=== PATIENT | female | born 1955 | race Hispanic/Latino ===

== ENCOUNTER 2018-10-09 06:25 | Inpatient (IN) | payer BC, MEDICAID ==
[2018-10-09] MEDS ORDERED: Albuterol 0.083% Inhal Sol (2.5 mg/3 mL) UD INH STA (07:44)
[2018-10-09] MEDS ORDERED: Sodium Chloride 0.9% 1,000 ML IV ONE ×2 (07:44→09:59)
[2018-10-09 08:07] LABS: BASO % 0.2 % (0.0-2.0); EOS # 0.1 K/uL (0.0-0.7); EOS % 0.4 % (0.0-4.0); HEMOGLOBIN 13.7 g/dL (11.0-16.0); LYMPH # 1.3 K/uL (1.0-4.3); LYMPH % 7.7 % (20.0-40.0); MEAN CELL VOLUME 88.4 fL (81.0-99.0); MEAN CORPUSCULAR HEMOGLOBIN 29.8 pg (27.0-31.0); MEAN CORPUSCULAR HGB CONC 33.7 g/dL (33.0-37.0); MEAN PLATELET VOLUME 9.8 fL (7.2-11.7); MONO # 1.2 K/uL (0.0-0.8); MONO % 7.2 % (0.0-10.0); NEUT # 13.7 K/uL (1.8-7.0); NEUT % 84.5 % (50.0-75.0); PLATELET COUNT 175 K/uL (130-400); RBC 4.58 Mil/uL (3.80-5.20); RED CELL DISTRIBUTION WIDTH 14.5 % (11.5-14.5); WHITE BLOOD COUNT 16.2 K/uL (4.8-10.8)
[2018-10-09] MEDS ORDERED: Sodium Chloride 0.9% 1,000 ML ONE ×2 (08:15→09:59)
[2018-10-09] MEDS ORDERED: Albuterol 0.083% Inhal Sol (2.5 mg/3 mL) UD ONE (08:15)
[2018-10-09 08:17] LABS: ALB/GLOB RATIO 1.4 (1.0-2.1); ALBUMIN 4.2 g/dL (3.5-5.0); ALT/SGPT 208 U/L (9-52); AST/SGOT 97 U/L (14-36); BLOOD UREA NITROGEN 12 mg/dL (7-17); CALCIUM 8.6 mg/dl (8.6-10.4); GFR NON-AFRICAN AMERICAN > 60
--- NOTE | 2018-10-09 08:26 | C.PDOC ---
History Of Present Illness 63 y/o female presents to the ER for evaluation of fever and chills which has been present since last night. Family of patient states that she had 102.2 F fever. Patient reports that she feels intermittent dizziness. She also notes that she began having cough upon arrival to ER. Denies recent travel/hospitalizations/antibiotics, syncope, weight loss, CP,SOB, nausea, vomiting, and abdominal pain. Time Seen by Provider: 10/09/18 06:44 Chief Complaint (Nursing): Dizziness/Lightheaded History Per: Patient, Family History/Exam Limitations: no limitations Onset/Duration Of Symptoms: Days Current Symptoms Are (Timing): Still Present Severity: Moderate Past Medical History Reviewed: Historical Data, Nursing Documentation, Vital Signs Vital Signs: Last Vital Signs Temp 98.6 F 10/09/18 06:34 Pulse 102 H 10/09/18 06:34 Resp 20 10/09/18 06:34 BP 112/74 10/09/18 06:34 Pulse Ox 96 10/09/18 06:34 - Medical History PMH: No Chronic Diseases Surgical History: No Surg Hx Family History: States: No Known Family Hx - Social History Hx Alcohol Use: No Hx Substance Use: No Review Of Systems Except As Marked, All Systems Reviewed And Found Negative. Constitutional: Positive for: Fever, Chills Cardiovascular: Negative for: Chest Pain Respiratory: Positive for: Cough. Negative for: Shortness of Breath Gastrointestinal: Negative for: Nausea, Vomiting, Abdominal Pain Physical Exam - Physical Exam Appears: Well, Non-toxic, No Acute Distress, Other (awake, alert, oriented x3, family translating at bedside) Skin: Normal Color, Warm, Dry Head: Atraumatic, Normacephalic Eye(s): bilateral: Normal Inspection, PERRL, EOMI Ear(s): Bilateral: Other (fluid behind ears, no TM erythema) Oral Mucosa: Moist Throat: Normal, No Erythema, No Exudate Neck: Supple Chest: Symmetrical Cardiovascular: Rhythm Irregular (tachycardiac) Respiratory: Decreased Breath Sounds (decreased breath sounds in bases), No Rales, Rhonchi (scattered rhonchi), No Wheezing Gastrointestinal/Abdominal: Normal Exam, Soft, No Tenderness, No Guarding, No Rebound Extremity: Normal ROM, Other (no pitting edema) Neurological/Psych: Oriented x3, Normal Speech ED Course And Treatment - Laboratory Results Result Diagrams: 10/10/18 07:42 10/10/18 07:42 ECG: Interpreted By Me, Viewed By Me ECG Rhythm: Sinus Rhythm Interpretation Of ECG: NSR with normal intervals, normal axises,non specific ST abnormalities, and no ST elevations/ depressions Rate From EC O2 Sat by Pulse Oximetry: 96 (RA) Pulse Ox Interpretation: Normal Medical Decision Making Medical Decision Making: Plan: --Labs --ECG --CXR --UA --IV Fluids --Albuterol 9:45 AM Results and plan discussed with patient and family. Patient will be treated with abx and admitted. Disposition Counseled Patient/Family Regarding: Studies Performed, Diagnosis - Disposition Disposition: HOSPITALIZED Disposition Time: 09:45 Condition: STABLE - Clinical Impression Clinical Impression: Pneumonia - Scribe Statement The provider has reviewed the documentation as recorded by the Aleksandribe Jose Alfredo Belle Provider Attestation: All medical record entries made by the Scribe were at my direction and personally dictated by me. I have reviewed the chart and agree that the record accurately reflects my personal performance of the history, physical exam, medical decision making, and the department course for this patient. I have also personally directed, reviewed, and agree with the discharge instructions and disposition.
[2018-10-09 08:35] LABS: SQUAMOUS EPITHIAL 1 /hpf (0-5); URINE BILIRUBIN NEGATIVE (NEGATIVE); URINE BLOOD 2+ (NEGATIVE); URINE CLARITY Clear (Clear); URINE COLOR Yellow (YELLOW); URINE GLUCOSE (UA) NORMAL (Normal); URINE LEUKOCYTE ESTERASE NEG Leu/uL (Negative); URINE PROTEIN 1+ mg/dL (NEGATIVE); URINE UROBILINOGEN NORMAL mg/dL (0.2-1.0)
[2018-10-09 09:35] LABS: BANDS 2 % (0-2); LYMPHOCYTE 10 % (20-40); MONOCYTE 4 % (0-10); NEUTROPHIL 84 % (50-75); PLATELET ESTIMATE NORMAL (NORMAL); TOTAL CELLS COUNTED 100
[2018-10-09] MEDS ORDERED: Azithromycin 500mg/250ML NS 500 MG/250 ML BAG IV STA (10:06)
[2018-10-09] MEDS ORDERED: cefTRIAXone IV 1 gm in Dextros 50 ML IV STA (10:06)
[2018-10-09] MEDS ORDERED: Azithromycin 500mg/250ML NS 500 MG/250 ML BAG IVPB ONE (10:28)
[2018-10-09 10:29] LABS: VENOUS BLOOD GAS BASE EXCESS -4.4 mmol/L (0.0-2.0); VENOUS BLOOD GAS PCO2 39 mmHg (40-60); VENOUS BLOOD GAS PO2 37 mm/Hg (30-55); VENOUS BLOOD PH 7.34 (7.32-7.43)
--- NOTE | 2018-10-09 11:36 | RAD ---
Date of service: 10/09/2018 HISTORY: Pneumonia COMPARISON: No prior. TECHNIQUE: Chest PA and lateral FINDINGS: LUNGS: Retrocardiac infiltrate is a possibility, as commented on by pulmonary impression of referring clinician. Nodular appearance linear opacity at the lateral left base is also seen and may be related but follow-up radiography is recommended following therapy. PLEURA: No significant pleural effusion identified. No pneumothorax apparent. CARDIOVASCULAR: No aortic atherosclerotic calcification present. Normal cardiac size. No pulmonary vascular congestion. OSSEOUS STRUCTURES: No significant abnormalities. VISUALIZED UPPER ABDOMEN: Normal. OTHER FINDINGS: None. IMPRESSION: Potential retrocardiac airspace disease with somewhat nodular component laterally. Follow-up radiography is recommended following therapy to demonstrate resolution. Otherwise, chest CT is recommended.
--- NOTE | 2018-10-09 13:46 | CP.PCM.HP ---
History of Present Illness - History of Present Illness History of Present Illness: COMPREHENSIVE CONSULT HPI 63 years old woman presented to [facility] emergency room complaining of sudden onset of chills cough and some atypical chest pain. Chest x-ray showed questionable retrocardiac density. Patient has no previous history of any medical illness. As per the family patient had 102F temperature prior to arrival PAST HIST. PERSONAL HIST: Smoking. N Alcohol. N Allergy N Travel_- . FAMILY HIST : ROS : Constitutional: Negative for weight change, Eyes: Negative for redness, swelling, itching, discharge, vision changes, blurry vision, double vision, glaucoma, cataracts, Ears: Negative for hearing loss, ringing, , tinnitus, vertigo Nose: Negative for rhinorrhea, stuffiness, sniffing, itching, postnasal drip, discoloration, nasal congestion and epistaxis. Throat: Negative for throat clearing, sore throat, hoarseness, difficulty swallowing and difficulty speaking. Respiratory: Negative for, hemoptysis, snoring at night, Cardiovascular: Negative for chest pain, palpitations, orthopnea, PND, Edema of legs, leg cramps, angina, claudication, , irregular heartbeat, Neurology: Negative for irritability, muscle weakness, numbness and tingling, seizures, tremors, migraines, slurred speech, syncope, memory loss, mood changes, recurrent headaches Gastrointestinal: Negative for difficulty swallowing, diarrhea, constipation, black stools, rectal bleeding, nausea, flatulence, reflux, poor appetite, change s in bowel habits, abdominal pain Genitourinary: Negative for frequent urination, hematuria, discharge, incontinence, urinary retention, frequent UTI, Psychiatric: Negative for depression, anxiety/panic, suicidal tendencies, Musculoskeletal: Negative for swollen joints, back pain, , neck pain, morning stiffness of joints, . Skin: Negative for rash, ulcers, itching, dry skin and pigmented lesions. P/E: Constitutional: Appears stated age and in no apparent distress. Head: Normocephalic. Ears: External ear canals patent without inflammation. Tympanic membranes intact with normal light reflex and landmark. Eyes: Pupils are central, bilaterally equal, symmetrical and reacts to light with normal movements and no icterus or pallor. Nose: External nares are patent. Mucosa is pink Mouth-Throat: Good general appearance and condition. No post-pharyngeal/oropharyngeal erythema and tonsillar hypertrophy. Good dental hygiene. Neck-Lymphatic: Neck is supple with normal ROM, no thyromegaly, lymph nodes or masses. JVD is normal with no carotid bruit. Lungs: Clear to percussion and auscultation with bilateral normal air entry. Cardiovascular: S1 and S2 are normal with no murmurs, gallops and rub. GI Exam: No hepatomegaly. Abdomen is soft and non-tender. No Organomegaly , masses or hernias are evident and bowel sounds are normal and active. Neurology: Higher function and all cranial nerves intact, with no gross motor or sensory deficit. Superficial and deep reflexes are normal with downwards planters. No cerebellar deficit with normal gait. Musculoskeletal: No tender spots with normal curvature of the spine with no swelling or restricted ROM of the small and large joints. Extremities: Homans sign absent. Intact pulses with no pitting edema, calf te nderness or skin color changes. Skin: No rash, eruptions or abnormal skin pigmentation LAB/RADIOLOGY: ASSESMENT : Sudden onset of respiratory symptoms with fever suggests influenza with possible influenza pneumonia PLAN: ID evaluation isolation by mouth Tamiflu and IV antibiotics Present on Admission - Present on Admission Any Indicators Present on Admission: No Past Patient History - Past Social History Smoking Status: Never Smoked - CARDIAC Other/Comment: "heart problem" possible arrythmia from childhood. patient unaware of exact problem. - PSYCHIATRIC Hx Substance Use: No Meds Allergies/Adverse Reactions: Allergies Allergy/AdvReac Type Severity Reaction Status Date / Time nuts Allergy Uncoded 10/09/18 06:34 shellfish Allergy Uncoded 10/09/18 06:34 Results - Vital Signs Recent Vital Signs: Last Vital Signs Temp 99.6 F 10/09/18 12:59 Pulse 91 H 10/09/18 12:59 Resp 17 10/09/18 12:59 BP 115/68 10/09/18 12:59 Pulse Ox 95 10/09/18 12:59 - Labs Result Diagrams: 10/12/18 08:57 10/12/18 08:57 Labs: Laboratory Results - last 24 hr 10/09/18 10/09/18 10/09/18 07:43 08:03 08:03 WBC 16.2 H RBC 4.58 Hgb 13.7 Hct 40.5 MCV 88.4 MCH 29.8 MCHC 33.7 RDW 14.5 Plt Count 175 MPV 9.8 Neut % (Auto) 84.5 H Lymph % (Auto) 7.7 L Kimball % (Auto) 7.2 Eos % (Auto) 0.4 Baso % (Auto) 0.2 Neut # (Auto) 13.7 H Lymph # (Auto) 1.3 Kimball # (Auto) 1.2 H Eos # (Auto) 0.1 Baso # (Auto) 0.0 Neutrophils % (Manual) 84 H Band Neutrophils % 2 Lymphocytes % (Manual) 10 L Monocytes % (Manual) 4 Platelet Estimate Normal pO2 VBG pH VBG pCO2 VBG HCO3 VBG Total CO2 VBG O2 Sat (Calc) VBG Base Excess VBG Potassium Glucose Lactate Sodium 137 Potassium 3.6 Chloride 104 Carbon Dioxide 24 Anion Gap 13 BUN 12 Creatinine 0.9 Est GFR ( Amer) > 60 Est GFR (Non-Af Amer) > 60 POC Glucose (mg/dL) 116 H Random Glucose 123 H Calcium 8.6 Total Bilirubin 0.7 AST 97 H ALT 208 H Alkaline Phosphatase 145 H Troponin I < 0.0120 Total Protein 7.1 Albumin 4.2 Globulin 2.9 Albumin/Globulin Ratio 1.4 Venous Blood Potassium Urine Color Urine Clarity Urine pH Ur Specific [place] Urine Protein Urine Glucose (UA) Urine Ketones Urine Blood Urine Nitrate Urine Bilirubin Urine Urobilinogen Ur Leukocyte Esterase Urine WBC (Auto) Urine RBC (Auto) Ur Squamous Epith Cells Influenza Typ A,B (EIA) 10/09/18 10/09/18 10/09/18 08:19 10:24 12:43 WBC RBC Hgb Hct MCV MCH MCHC RDW Plt Count MPV Neut % (Auto) Lymph % (Auto) [place] % (Auto) Eos % (Auto) Baso % (Auto) Neut # (Auto) Lymph # (Auto) Kim[place] # (Auto) Eos # (Auto) Baso # (Auto) Neutrophils % (Manual) Band Neutrophils % Lymphocytes % (Manual) Monocytes % (Manual) Platelet Estimate pO2 37 VBG pH 7.34 VBG pCO2 39 L VBG HCO3 20.7 VBG Total CO2 22.2 VBG O2 Sat (Calc) 72.8 H VBG Base Excess -4.4 L VBG Potassium 2.7 L Glucose 122 H Lactate 1.7 Sodium 141.0 Potassium Chloride 110.0 H Carbon Dioxide Anion Gap BUN Creatinine Est GFR ( Amer) Est GFR (Non-Af Amer) POC Glucose (mg/dL) Random Glucose Calcium Total Bilirubin AST ALT Alkaline Phosphatase Troponin I Total Protein Albumin Globulin Albumin/Globulin Ratio Venous Blood Potassium 2.7 L Urine Color Yellow Urine Clarity Clear Urine pH 6.0 Ur Specific [place] 1.013 Urine Protein 1+ H Urine Glucose (UA) Normal Urine Ketones Negative Urine Blood 2+ H Urine Nitrate Negative Urine Bilirubin Negative Urine Urobilinogen Normal Ur Leukocyte Esterase Neg Urine WBC (Auto) 7 H Urine RBC (Auto) 16 H Ur Squamous Epith Cells 1 Influenza Typ A,B (EIA) Pos for influenza a H
[2018-10-09 18:40] VITALS: RESP 20
--- NOTE | 2018-10-09 22:40 | CP.PCM.CON ---
History of Present Illness - History of Present Illness History of Present Illness: HPI: 63 y/o female presents to the ER for evaluation of fever and chills which has been present since last night. Family of patient states that she had 102.2 F fever. Patient reports that she feels intermittent dizziness. She also notes that she began having cough upon arrival to ER. Denies having CP,SOB, nausea, vomiting, and abdominal pain. 63-year-old Mong[place]ian female who presents to the ER for evaluation off sudden onset of fever and chills and feeling dizziness with inability to stand. Patient states she has been not feeling well for the past 2 days but on the day of admission she felt extremely weak and dizzy. She also noted that she had a fever of 102.2 at home when they called the ambulance. Patient also complains of a dry cough which she states she has been a having intermittently for the past 2 months but got worse yesterday. Patient also reports that she felt a lump / SWELLING ? LN ON THE RIGHT SIDE OF HER NECK. CHEST X-RAY ON ADMISSION SHOWED A RETROCARDIAC INFILTRATE WITH SOME NODULAR COMPONENT LEFT LATERAL BASE. A RAPID INFLUENZA EIA REPORTED POSITIVE FOR INFLUENZA A. PATIENT DENIES ANY LOSS OF WEIGHT, LOSS OF APPETITE OR NIGHT SWEATS. PATIENT DENIES ANY RECENT TRAVEL OR ANY SICK CONTACTS. PATIENT DENIES ANY PREVIOUS HISTORY OF TB/OR EXPOSURE RECENT OR PAST. PT IN [place] X LAST 13 YEARS. PMH: No Chronic Diseases / FATTY LIVER Surgical History: No Surg Hx Family History: States: No Known Family Hx - Social History Hx Alcohol Use: No Hx Substance Use: No ALLERGY: NUTS. SHELLFISH. Review of Systems - Constitutional Constitutional: Chills, Fever, Malaise - EENT Eyes: absent: Blurred Vision, Change in Vision Ears: Dizziness. absent: Ear Discharge, Ear Pain Nose/Mouth/Throat: absent: Mouth Lesions, Sore Throat - Cardiovascular Cardiovascular: absent: Chest Pain, Leg Edema, Palpitations, Pedal Edema - Respiratory Respiratory: Cough (DRY COUGH). absent: Hemoptysis, Change in Mucous Color, Pain with Coughing - Gastrointestinal Gastrointestinal: absent: Abdominal Pain, Diarrhea, Nausea, Vomiting - Musculoskeletal Musculoskeletal: Neck Pain. absent: Myalgias - Integumentary Integumentary: absent: Rash - Hematologic/Lymphatic Hematologic: As Per HPI, Lymphadenopathy (RIGHT SIDE OF THE NECK). absent: Easy Bruising Past Patient History - Past Medical History & Family History Past Medical History?: Yes - Past Social History Smoking Status: Never Smoked - CARDIAC Hx Cardiac Disorders: Yes Hx Cardia Arrhythmia: Yes (childhood) Other/Comment: "heart problem" possible arrythmia from childhood. patient unaware of exact problem. - PULMONARY Hx Respiratory Disorders: No - NEUROLOGICAL Hx Neurological Disorder: Yes Hx Vertigo: Yes (ear pain for past 3 weeks causing vertigo) - HEENT Hx HEENT Problems: Yes Other/Comment: ear pain for past 3 weeks causing vertigo - RENAL Hx Chronic Kidney Disease: No - ENDOCRINE/METABOLIC Hx Endocrine Disorders: No - HEMATOLOGICAL/ONCOLOGICAL Hx Blood Disorders: No - INTEGUMENTARY Hx Dermatological Problems: No - MUSCULOSKELETAL/RHEUMATOLOGICAL Hx Musculoskeletal Disorders: No Hx Falls: No - GASTROINTESTINAL Hx Gastrointestinal Disorders: No - GENITOURINARY/GYNECOLOGICAL Hx Genitourinary Disorders: No - PSYCHIATRIC Hx Psychophysiologic Disorder: No Hx Substance Use: No - SURGICAL HISTORY Hx Surgeries: Yes Hx Appendectomy: Yes - ANESTHESIA Hx Anesthesia: Yes Hx Anesthesia Reactions: No Hx Malignant Hyperthermia: No Has any member of the family had a problem w/ anesthesia?: No Meds Allergies/Adverse Reactions: Allergies Allergy/AdvReac Type Severity Reaction Status Date / Time nuts Allergy Uncoded 10/09/18 06:34 shellfish Allergy Uncoded 10/09/18 06:34 - Medications Medications: Current Medications Acetaminophen (Tylenol 325mg Tab) 650 mg PO Q4 PRN PRN Reason: Temperature Last Admin: 10/09/18 19:01 Dose: 650 mg Azithromycin (Zithromax 500mg In Ns Addvantage) 500 mg in 250 mls @ 167 mls/hr IVPB DAILY IRISH; Protocol Cefepime HCl (Maxipime Iv 1 Gm Premix) 1 gm in 50 mls @ 100 mls/hr IVPB Q24H IRISH; Protocol Oseltamivir Phosphate (Tamiflu Cap) 75 mg PO BID IRISH; Protocol Stop: 10/14/18 18:01 Last Admin: 10/09/18 17:19 Dose: 75 mg Zolpidem Tartrate (Ambien) 5 mg PO HS PRN PRN Reason: Insomnia Physical Exam - Constitutional Appears: No Acute Distress - Head Exam Head Exam: NORMAL INSPECTION - Eye Exam Eye Exam: EOMI, PERRL - ENT Exam ENT Exam: Normal Oropharynx - Neck Exam Neck exam: Positive for: Full Rom, Lymphadenopathy (LEFT ANTERIOR TRIANGLE.), Normal Inspection. Negative for: Meningismus, Tenderness, Thyromegaly - Respiratory Exam Respiratory Exam: Rhonchi (LESS BASE.) - Cardiovascular Exam Cardiovascular Exam: REGULAR RHYTHM, +S1, +S2. absent: Systolic Murmur - GI/Abdominal Exam GI & Abdominal Exam: Normal Bowel Sounds, Soft. absent: Organomegaly, Tenderness - Extremities Exam Extremities exam: Positive for: normal capillary refill, pedal edema (1+ EDEMA), pedal pulses present. Negative for: calf tenderness - Neurological Exam Neurological exam: Alert, CN II-XII Intact, Oriented x3, Reflexes Normal - Psychiatric Exam Psychiatric exam: Normal Mood - Skin Skin Exam: Normal Color, Warm Results - Vital Signs Recent Vital Signs: Last Vital Signs Temp 99.5 F 10/09/18 20:01 Pulse 72 10/09/18 18:38 Resp 20 10/09/18 18:38 BP 123/72 10/09/18 18:38 Pulse Ox 95 10/09/18 18:38 - Labs Result Diagrams: 10/09/18 08:03 10/09/18 08:03 Labs: Laboratory Results - last 24 hr 10/09/18 10/09/18 10/09/18 07:43 08:03 08:03 WBC 16.2 H RBC 4.58 Hgb 13.7 Hct 40.5 MCV 88.4 MCH 29.8 MCHC 33.7 RDW 14.5 Plt Count 175 MPV 9.8 Neut % (Auto) 84.5 H Lymph % (Auto) 7.7 L [place] % (Auto) 7.2 Eos % (Auto) 0.4 Baso % (Auto) 0.2 Neut # (Auto) 13.7 H Lymph # (Auto) 1.3 Vance # (Auto) 1.2 H Eos # (Auto) 0.1 Baso # (Auto) 0.0 Neutrophils % (Manual) 84 H Band Neutrophils % 2 Lymphocytes % (Manual) 10 L Monocytes % (Manual) 4 Platelet Estimate Normal pO2 VBG pH VBG pCO2 VBG HCO3 VBG Total CO2 VBG O2 Sat (Calc) VBG Base Excess VBG Potassium Glucose Lactate Sodium 137 Potassium 3.6 Chloride 104 Carbon Dioxide 24 Anion Gap 13 BUN 12 Creatinine 0.9 Est GFR ( Amer) > 60 Est GFR (Non-Af Amer) > 60 POC Glucose (mg/dL) 116 H Random Glucose 123 H Calcium 8.6 Total Bilirubin 0.7 AST 97 H ALT 208 H Alkaline Phosphatase 145 H Troponin I < 0.0120 Total Protein 7.1 Albumin 4.2 Globulin 2.9 Albumin/Globulin Ratio 1.4 Venous Blood Potassium Urine Color Urine Clarity Urine pH Ur Specific [place] Urine Protein Urine Glucose (UA) Urine Ketones Urine Blood Urine Nitrate Urine Bilirubin Urine Urobilinogen Ur Leukocyte Esterase Urine WBC (Auto) Urine RBC (Auto) Ur Squamous Epith Cells Influenza Typ A,B (EIA) 10/09/18 10/09/18 10/09/18 08:19 10:24 12:43 WBC RBC Hgb Hct MCV MCH MCHC RDW Plt Count MPV Neut % (Auto) Lymph % (Auto) Vance % (Auto) Eos % (Auto) Baso % (Auto) Neut # (Auto) Lymph # (Auto) Vance # (Auto) Eos # (Auto) Baso # (Auto) Neutrophils % (Manual) Band Neutrophils % Lymphocytes % (Manual) Monocytes % (Manual) Platelet Estimate pO2 37 VBG pH 7.34 VBG pCO2 39 L VBG HCO3 20.7 VBG Total CO2 22.2 VBG O2 Sat (Calc) 72.8 H VBG Base Excess -4.4 L VBG Potassium 2.7 L Glucose 122 H Lactate 1.7 Sodium 141.0 Potassium Chloride 110.0 H Carbon Dioxide Anion Gap BUN Creatinine Est GFR ( Amer) Est GFR (Non-Af Amer) POC Glucose (mg/dL) Random Glucose Calcium Total Bilirubin AST ALT Alkaline Phosphatase Troponin I Total Protein Albumin Globulin Albumin/Globulin Ratio Venous Blood Potassium 2.7 L Urine Color Yellow Urine Clarity Clear Urine pH 6.0 Ur Specific [place] 1.013 Urine Protein 1+ H Urine Glucose (UA) Normal Urine Ketones Negative Urine Blood 2+ H Urine Nitrate Negative Urine Bilirubin Negative Urine Urobilinogen Normal Ur Leukocyte Esterase Neg Urine WBC (Auto) 7 H Urine RBC (Auto) 16 H Ur Squamous Epith Cells 1 Influenza Typ A,B (EIA) Pos for influenza a H - Imaging and Cardiology Chest x-ray Status: Report reviewed by me (RETROCARDIAC INFILTRATE WITH SOMEWHAT NODULAR LINEAR OPACITY AT THE LEFT LATERAL BASE.) Assessment & Plan (1) Pneumonia and influenza Status: Acute (2) Fatty liver disease, nonalcoholic Status: Acute - Assessment and Plan (Free Text) Plan: PANCULTURES. ESR CRP mrsa SCREEN ATYPICAL TITERS. INFLUENZA a AND b ANTIBODY HEPATITIS SCREEN. DC IV CEFTRIAXONE. CONTINUE TAMIFLU 75 MG BY MOUTH TWICE A DAY X5 DAYS.10/09/18 START iv CEFEPIME 1 G EVERY 12 HOURLY 10/09/18. cONTINUE zITHROMAX 500 MG IVPB q 24 HOURLY 10/09/18. DROPLET PRECAUTIONS FOR INFLUENZA. PULMONARY TOILET. CASE DISCUSSED WITH THE FAMILY MEMBERS AT THE BEDSIDE AND STAFF.
[2018-10-10] MEDS: Cefepime IV 1 gm in Dextrose 1 GM/50 ML BAG IVPB SCH ×3 (00:45→23:57)
[2018-10-10 07:58] LABS: BASO % 0.3 % (0.0-2.0); EOS # 0.3 K/uL (0.0-0.7); EOS % 2.3 % (0.0-4.0); HEMOGLOBIN 12.3 g/dL (11.0-16.0); LYMPH # 2.3 K/uL (1.0-4.3); LYMPH % 19.7 % (20.0-40.0); MEAN CELL VOLUME 88.6 fL (81.0-99.0); MEAN CORPUSCULAR HEMOGLOBIN 29.1 pg (27.0-31.0); MEAN CORPUSCULAR HGB CONC 32.8 g/dL (33.0-37.0); MEAN PLATELET VOLUME 10.4 fL (7.2-11.7); MONO # 1.1 K/uL (0.0-0.8); MONO % 9.2 % (0.0-10.0); NEUT # 8.1 K/uL (1.8-7.0); NEUT % 68.5 % (50.0-75.0); RBC 4.21 Mil/uL (3.80-5.20); RED CELL DISTRIBUTION WIDTH 14.3 % (11.5-14.5); WHITE BLOOD COUNT 11.9 K/uL (4.8-10.8)
[2018-10-10 08:15] LABS: ALB/GLOB RATIO 1.2 (1.0-2.1); ALBUMIN 3.4 g/dL (3.5-5.0); ALT/SGPT 155 U/L (9-52); AST/SGOT 72 U/L (14-36); BILIRUBIN,DIRECT 0.3 mg/dL (0.0-0.4); BLOOD UREA NITROGEN 7 mg/dL (7-17); GFR NON-AFRICAN AMERICAN > 60
[2018-10-10] MEDS ORDERED: Cefepime IV 1 gm in Dextrose 1 GM/50 ML BAG IVPB SCH (10:00)
[2018-10-10] MEDS ORDERED: Potassium Chloride 20 mEq ER Tab PO ONE ×2 (10:00→17:00)
[2018-10-10] MEDS: Azithromycin 500mg/250ML NS 500 MG/250 ML BAG IVPB SCH (10:17)
[2018-10-10] MEDS ORDERED: Iodixanol 320 mg/ml 150 ml Bottle IV ONE (12:14)
--- NOTE | 2018-10-10 14:03 | CT ---
Date of service: 10/10/2018 PROCEDURE: CT Chest with contrast HISTORY: Rule out cancer COMPARISON: None available. TECHNIQUE: Contiguous axial images were obtained through the chest with intravenous contrast enhancement. Sagittal and coronal reconstructions were performed. IV contrast: 100 cc Visipaque 320 contrast material. Radiation dose: Total exam DLP = 795.17 mGy-cm. This CT exam was performed using one or more of the following dose reduction techniques: Automated exposure control, adjustment of the mA and/or kV according to patient size, and/or use of iterative reconstruction technique. FINDINGS: LUNGS: Minimal bibasilar atelectasis with what appears represent some linear-curvilinear scarring in the left lung base and lingular region. Mild more discrete elliptical shaped nodular density seen in the left lingular region measuring 16.5 mm x 8 mm with linear area of scarring and/or fibrosis emanating from this focus. This could be postinflammatory possibly representing an area of scarring or atelectasis however, follow-up CT scan in 3 months could be performed to assess stability of this nodular density. MEDIASTINUM: Heart is borderline/mildly enlarged. No significant pericardial effusion. Ascending thoracic aorta measures approximately 3.55 cm and descending thoracic aorta measures approximately 2.2 cm. No significant aortic atherosclerotic calcification or mural plaque present. Few tiny nonspecific mediastinal lymph nodes are present. No significant hilar adenopathy. Trachea is midline and patent with no large central endoluminal lesions. Small hiatal hernia with minimal wall thickening of the distal esophagus likely due to protrusion of gastric mucosa. Esophagitis not excluded. PLEURA: No pleural fluid. No pneumothorax. BONES: No fracture. No destructive lesion. UPPER ABDOMEN: Gallbladder is incompletely distended which may account for slight thick-walled appearance. No evidence of intraluminal gallbladder calculi. There is also mild wall thickening of the stomach which is likely due to incomplete distention as well however possibility of other gastritis or other intrinsic/invasive wall lesion not excluded. OTHER FINDINGS: Mild multilevel degenerative spondylosis of the thoracic spine. IMPRESSION: Minimal bibasilar atelectasis with what appears represent some linear scarring in the left lung base and lingular region. Mild more discrete elliptical shaped nodular density seen in the left lingular region measuring 16.5 mm x 8 mm with linear area of scarring and/or fibrosis emanating from this focus. This could be postinflammatory possibly representing an area of scarring or atelectasis however, follow-up CT scan in 3 months could be performed to assess stability of this nodular density.
--- NOTE | 2018-10-10 14:36 | CP.PCM.PN ---
Subjective - Date & Time of Evaluation Date of Evaluation: 10/10/18 Time of Evaluation: 14:34 - Subjective Subjective: CHIEF COMPLAINTS TODAY : Patient still has mild cough with no expectoration and upper respiratory tract congestion ROS. HEENT : N. Resp : No hemoptysis Cardio : No anginal CP, PND, orthopnea, palpitation GI : No abd.pain, n/v ,diarrhea or GI bleeding . AGER OPERATOR : No headache, vertigo, focal deficit. Musculoskel : No joint swelling , Derm : No rash Psych : Normal affect. Ext : No swelling ,calf pain PE. Pt. is alert awake in no distress. V.S As noted in the chart Head ,ear nose,throat and eyes : Normal. Neck : Supple with normal carotids. Lungs: Clear air entry. Heart : S1 & S2 normal with S4. No murmur. Abd : Soft non tender with normal bowel sounds. Neuro : Moves all ext. with no localized deficit. Ext : No edema with intact pulses.Non tender calves Derm : No rashes or decubitus ulcer. LABS/RADIOLOGY: CT scan of the chest shows some nodular lesion in the left lingula lobe could be secondary to post inflammatory or fibrosis recommend CAT scan in 3 months ASSESSMENT/PLAN : Continue present medications and discussed with the family. Objective - Vital Signs/Intake and Output Vital Signs (last 24 hours): Temp Pulse Resp BP Pulse Ox 99.1 F 90 20 116/75 95 10/10/18 08:40 10/10/18 08:40 10/10/18 08:40 10/10/18 08:40 10/10/18 08:40 Intake and Output: 10/10/18 10/10/18 11:59 23:59 Intake Total 200 Balance 200 - Medications Medications: Current Medications Acetaminophen (Tylenol 325mg Tab) 650 mg PO Q4 PRN PRN Reason: Temperature Last Admin: 10/09/18 19:01 Dose: 650 mg Heparin Sodium (Porcine) (Heparin) 5,000 units SC Q12 [facility] Last Admin: 10/10/18 10:18 Dose: 5,000 units Azithromycin (Zithromax 500mg In Ns Addvantage) 500 mg in 250 mls @ 167 mls/hr IVPB DAILY [facility]; Protocol Last Admin: 10/10/18 10:17 Dose: 167 mls/hr Cefepime HCl (Maxipime Iv 1 Gm Premix) 1 gm in 50 mls @ 100 mls/hr IVPB Q12H [facility]; Protocol Last Admin: 10/10/18 13:10 Dose: 100 mls/hr Potassium Chloride (Potassium Chloride 20 Meq/100 Ml) 20 meq in 100 mls @ 50 mls/hr IVPB ONCE ONE Stop: 10/10/18 17:59 Oseltamivir Phosphate (Tamiflu Cap) 75 mg PO BID [facility]; Protocol Stop: 10/14/18 18:01 Last Admin: 10/10/18 10:17 Dose: 75 mg Zolpidem Tartrate (Ambien) 5 mg PO HS PRN PRN Reason: Insomnia Last Admin: 10/09/18 23:10 Dose: 5 mg - Labs Labs: 10/10/18 07:42 10/10/18 07:42
--- NOTE | 2018-10-10 14:38 | CP.PCM.PN ---
Subjective - Date & Time of Evaluation Date of Evaluation: 10/10/18 Time of Evaluation: 14:38 - Subjective Subjective: CHIEF COMPLAINTS TODAY : AFEBRILE C/O DRY COUGH +VE CONGESTION ROS. HEENT : N. Resp : No hemoptysis +VE COUGH/ Cardio : No anginal CP, PND, orthopnea, palpitation GI : No abd.pain, n/v ,diarrhea or GI bleeding . RELAY ADJUSTER : No headache, vertigo, focal deficit. Musculoskel : No joint swelling , Derm : No rash Psych : Normal affect. Ext : No swelling ,calf pain PE. Pt. is alert awake in no distress. V.S As noted in the chart Head ,ear nose,throat and eyes : Normal. Neck : Supple with normal carotids. Lungs: PROLONGED EXPIRATORY PHASE Heart : S1 & S2 normal with S4. No murmur. Abd : Soft non tender with normal bowel sounds. Neuro : Moves all ext. with no localized deficit. Ext : No edema with intact pulses.Non tender calves Derm : No rashes or decubitus ulcer. LABS/RADIOLOGY: REVIEWED CT scan of the chest shows some nodular lesion in the left lingula lobe could be secondary to post inflammatory or fibrosis recommend CAT scan in 3 months ASSESSMENT INFLUENZA A EXACERBATION OF COPD. CHRONIC FIBROSIS /PLAN : ]BENZONATES 100MG PO TID FOR COUGH PULMONARY CONSULT FOR EXASCERBATION OF COPD /FLUE CONTINUE TAMIFLU 75 MG BY MOUTH TWICE A DAY X5 DAYS.10/09/18 CONTINUE iv CEFEPIME 1 G EVERY 12 HOURLY 10/09/18. cONTINUE zITHROMAX 500 MG IVPB q 24 HOURLY 10/09/18. DROPLET PRECAUTIONS FOR INFLUENZA. PULMONARY TOILET. CASE DISCUSSED WITH THE STAFF Objective - Vital Signs/Intake and Output Vital Signs (last 24 hours): Temp Pulse Resp BP Pulse Ox 99.1 F 90 20 116/75 95 10/10/18 08:40 10/10/18 08:40 10/10/18 08:40 10/10/18 08:40 10/10/18 08:40 Intake and Output: 10/10/18 10/10/18 06:59 18:59 Intake Total 200 Balance 200 - Medications Medications: Current Medications Acetaminophen (Tylenol 325mg Tab) 650 mg PO Q4 PRN PRN Reason: Temperature Last Admin: 10/09/18 19:01 Dose: 650 mg Heparin Sodium (Porcine) (Heparin) 5,000 units SC Q12 [facility] Last Admin: 10/10/18 10:18 Dose: 5,000 units Azithromycin (Zithromax 500mg In Ns Addvantage) 500 mg in 250 mls @ 167 mls/hr IVPB DAILY [facility]; Protocol Last Admin: 10/10/18 10:17 Dose: 167 mls/hr Cefepime HCl (Maxipime Iv 1 Gm Premix) 1 gm in 50 mls @ 100 mls/hr IVPB Q12H [facility]; Protocol Last Admin: 10/10/18 13:10 Dose: 100 mls/hr Potassium Chloride (Potassium Chloride 20 Meq/100 Ml) 20 meq in 100 mls @ 50 mls/hr IVPB ONCE ONE Stop: 10/10/18 17:59 Oseltamivir Phosphate (Tamiflu Cap) 75 mg PO BID [facility]; Protocol Stop: 10/14/18 18:01 Last Admin: 10/10/18 10:17 Dose: 75 mg Zolpidem Tartrate (Ambien) 5 mg PO HS PRN PRN Reason: Insomnia Last Admin: 10/09/18 23:10 Dose: 5 mg - Labs Labs: 10/10/18 07:42 10/10/18 07:42 Assessment and Plan (1) Pneumonia and influenza Status: Acute (2) Fatty liver disease, nonalcoholic Status: Acute
[2018-10-10] MEDS: Albuterol-Ipratrop 3 mg / 0.5 (3 ml) UD INH SCH (19:38)
[2018-10-11] MEDS: Albuterol-Ipratrop 3 mg / 0.5 (3 ml) UD INH SCH ×4 (01:07→19:43)
[2018-10-11 07:58] LABS: BASO # 0.1 K/uL (0.0-0.2); BASO % 0.9 % (0.0-2.0); EOS # 0.3 K/uL (0.0-0.7); EOS % 3.7 % (0.0-4.0); HEMOGLOBIN 12.2 g/dL (11.0-16.0); LYMPH # 2.7 K/uL (1.0-4.3); LYMPH % 33.5 % (20.0-40.0); MEAN CELL VOLUME 88.2 fL (81.0-99.0); MEAN CORPUSCULAR HEMOGLOBIN 29.9 pg (27.0-31.0); MEAN CORPUSCULAR HGB CONC 33.9 g/dL (33.0-37.0); MEAN PLATELET VOLUME 10.5 fL (7.2-11.7); MONO # 0.8 K/uL (0.0-0.8); MONO % 9.6 % (0.0-10.0); NEUT # 4.2 K/uL (1.8-7.0); NEUT % 52.3 % (50.0-75.0); RBC 4.07 Mil/uL (3.80-5.20); RED CELL DISTRIBUTION WIDTH 14.6 % (11.5-14.5); WHITE BLOOD COUNT 8.1 K/uL (4.8-10.8)
[2018-10-11 08:12] LABS: ALB/GLOB RATIO 1.2 (1.0-2.1); ALBUMIN 3.4 g/dL (3.5-5.0); ALT/SGPT 213 U/L (9-52); AST/SGOT 128 U/L (14-36); BLOOD UREA NITROGEN 8 mg/dL (7-17); CALCIUM 8.4 mg/dl (8.6-10.4); GFR NON-AFRICAN AMERICAN > 60
[2018-10-11 08:44] LABS: HEPATITIS B SURFACE AG Negative (NEGATIVE)
[2018-10-11 08:50] LABS: HEPATITIS A IGM NEGATIVE (NEGATIVE); HEPATITIS B CORE AB NEGATIVE (NEGATIVE)
[2018-10-11 09:01] LABS: HEPATITIS C ANTIBODY NEGATIVE (NEGATIVE)
[2018-10-11] MEDS: Azithromycin 500mg/250ML NS 500 MG/250 ML BAG IVPB SCH (10:25)
[2018-10-11] MEDS: Cefepime IV 1 gm in Dextrose 1 GM/50 ML BAG IVPB SCH ×2 (13:10→23:35)
--- NOTE | 2018-10-11 14:21 | CP.PCM.PN ---
Subjective - Date & Time of Evaluation Date of Evaluation: 10/11/18 Time of Evaluation: 14:21 - Subjective Subjective: CHIEF COMPLAINTS TODAY : AFEBRILE STILL WITH DRY COUGH +VE CONGESTED CANNOT COMPLETE A FULL SENTANCE-START COUGHING. C/O WATERY GREEN DIARRHOEA X 4 SINCE AM ROS. HEENT : N. Resp : No hemoptysis +VE COUGH/ Cardio : No anginal CP, PND, orthopnea, palpitation GI : No abd.pain, n/v ,diarrhea or GI bleeding . 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 Musculoskel : No joint swelling , Derm : No rash Psych : Normal affect. Ext : No swelling ,calf pain PE. Pt. is alert awake in no distress. V.S As noted in the chart Head ,ear nose,throat and eyes : Normal. Neck : Supple with normal carotids. Lungs: PROLONGED EXPIRATORY PHASE Heart : S1 & S2 normal with S4. No murmur. Abd : Soft non tender with normal bowel sounds. Neuro : Moves all ext. with no localized deficit. Ext : No edema with intact pulses.Non tender calves Derm : No rashes or decubitus ulcer. LABS/RADIOLOGY: REVIEWED STOOL C. DEFFICILE X -VE CT scan of the chest shows some nodular lesion in the left lingula lobe could be secondary to post inflammatory or fibrosis recommend CAT scan in 3 months ASSESSMENT INFLUENZA A EXACERBATION OF COPD. CHRONIC FIBROSIS DIARRHOEA R/O INFECTIOUS DIARRHOEA /PLAN : STOOLS FOR CULTURE/LEUKOCYTES ]BENZONATES 100MG PO TID FOR COUGH PULMONARY CONSULT FOR EXASCERBATION OF COPD /FLUE CONTINUE TAMIFLU 75 MG BY MOUTH TWICE A DAY X5 DAYS.10/09/18 CONTINUE iv CEFEPIME 1 G EVERY 12 HOURLY 10/09/18. DC zITHROMAX 500 MG IVPB q 24 HOURLY 10/09/18. DROPLET PRECAUTIONS FOR INFLUENZA. PULMONARY TOILET. CASE DISCUSSED WITH THE STAFFAT LENGTH. Objective - Vital Signs/Intake and Output Vital Signs (last 24 hours): Temp Pulse Resp BP Pulse Ox 98.4 F 75 20 105/61 96 10/11/18 08:00 10/11/18 08:00 10/11/18 08:00 10/11/18 08:00 10/11/18 08:00 Intake and Output: 10/11/18 10/11/18 06:59 18:59 Intake Total 100 Balance 100 - Medications Medications: Current Medications Acetaminophen (Tylenol 325mg Tab) 650 mg PO Q4 PRN PRN Reason: Temperature Last Admin: 10/09/18 19:01 Dose: 650 mg Albuterol/Ipratropium (Duoneb 3 Mg/0.5 Mg (3 Ml) Ud) 3 ml INH RQ6 [facility] Last Admin: 10/11/18 09:36 Dose: 3 ml Benzonatate (Tessalon Perles) 200 mg PO TID [facility] Last Admin: 10/11/18 13:40 Dose: 200 mg Heparin Sodium (Porcine) (Heparin) 5,000 units SC Q12 [facility] Last Admin: 10/11/18 10:24 Dose: 5,000 units Azithromycin (Zithromax 500mg In Ns Addvantage) 500 mg in 250 mls @ 167 mls/hr IVPB DAILY [facility]; Protocol Last Admin: 10/11/18 10:25 Dose: 167 mls/hr Cefepime HCl (Maxipime Iv 1 Gm Premix) 1 gm in 50 mls @ 100 mls/hr IVPB Q12H [facility]; Protocol Last Admin: 10/11/18 13:10 Dose: 100 mls/hr Oseltamivir Phosphate (Tamiflu Cap) 75 mg PO BID [facility]; Protocol Stop: 10/14/18 18:01 Last Admin: 10/11/18 10:24 Dose: 75 mg Saccharomyces Boulardii (Florastor) 250 mg PO BID [facility] Zolpidem Tartrate (Ambien) 5 mg PO HS PRN PRN Reason: Insomnia Last Admin: 10/10/18 21:20 Dose: 5 mg - Labs Labs: 10/11/18 07:45 10/11/18 07:45 Assessment and Plan (1) Pneumonia and influenza Status: Acute (2) Fatty liver disease, nonalcoholic Status: Acute
--- NOTE | 2018-10-11 14:22 | CP.PCM.PN ---
Subjective - Date & Time of Evaluation Date of Evaluation: 10/11/18 Time of Evaluation: 14:21 - Subjective Subjective: CHIEF COMPLAINTS TODAY : Patient still has mild cough with no expectoration and upper respiratory tract congestion yesterday patient was complaining of watery diarrhea and wheezing ROS. HEENT : N. Resp : No hemoptysis Cardio : No anginal CP, PND, orthopnea, palpitation GI : No abd.pain, n/v ,diarrhea or GI bleeding . 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 Musculoskel : No joint swelling , Derm : No rash Psych : Normal affect. Ext : No swelling ,calf pain PE. Pt. is alert awake in no distress. V.S As noted in the chart Head ,ear nose,throat and eyes : Normal. Neck : Supple with normal carotids. Lungs: Clear air entry. Heart : S1 & S2 normal with S4. No murmur. Abd : Soft non tender with normal bowel sounds. Neuro : Moves all ext. with no localized deficit. Ext : No edema with intact pulses.Non tender calves Derm : No rashes or decubitus ulcer. LABS/RADIOLOGY: CT scan of the chest shows some nodular lesion in the left lingula lobe could be secondary to post inflammatory or fibrosis recommend CAT scan in 3 months ASSESSMENT/PLAN : C. difficile and DuoNeb nebulizer started. Objective - Vital Signs/Intake and Output Vital Signs (last 24 hours): Temp Pulse Resp BP Pulse Ox 98.4 F 75 20 105/61 96 10/11/18 08:00 10/11/18 08:00 10/11/18 08:00 10/11/18 08:00 10/11/18 08:00 Intake and Output: 10/11/18 10/11/18 11:59 23:59 Intake Total 100 Balance 100 - Medications Medications: Current Medications Acetaminophen (Tylenol 325mg Tab) 650 mg PO Q4 PRN PRN Reason: Temperature Last Admin: 10/09/18 19:01 Dose: 650 mg Albuterol/Ipratropium (Duoneb 3 Mg/0.5 Mg (3 Ml) Ud) 3 ml INH RQ6 [facility] Last Admin: 10/11/18 09:36 Dose: 3 ml Benzonatate (Tessalon Perles) 200 mg PO TID [facility] Last Admin: 10/11/18 13:40 Dose: 200 mg Heparin Sodium (Porcine) (Heparin) 5,000 units SC Q12 [facility] Last Admin: 10/11/18 10:24 Dose: 5,000 units Azithromycin (Zithromax 500mg In Ns Addvantage) 500 mg in 250 mls @ 167 mls/hr IVPB DAILY [facility]; Protocol Last Admin: 10/11/18 10:25 Dose: 167 mls/hr Cefepime HCl (Maxipime Iv 1 Gm Premix) 1 gm in 50 mls @ 100 mls/hr IVPB Q12H [facility]; Protocol Last Admin: 10/11/18 13:10 Dose: 100 mls/hr Oseltamivir Phosphate (Tamiflu Cap) 75 mg PO BID [facility]; Protocol Stop: 10/14/18 18:01 Last Admin: 10/11/18 10:24 Dose: 75 mg Saccharomyces Boulardii (Florastor) 250 mg PO BID [facility] Zolpidem Tartrate (Ambien) 5 mg PO HS PRN PRN Reason: Insomnia Last Admin: 10/10/18 21:20 Dose: 5 mg - Labs Labs: 10/11/18 07:45 10/11/18 07:45
[2018-10-11] MEDS ORDERED: Potassium Chloride 20 mEq ER Tab PO ONE (17:00)
--- NOTE | 2018-10-11 17:27 | CARD ---
APPROVED REPORT Date of service: 10/09/2018 EKG Measurement Heart [id number] <Conclusion> Normal sinus rhythm Nonspecific ST abnormality Borderline EKG
[2018-10-11] MEDS: Saccharomyces Boulardi 250 mg Cap PO SCH (18:25)
[2018-10-12] MEDS: Albuterol-Ipratrop 3 mg / 0.5 (3 ml) UD INH SCH ×3 (01:25→13:22)
[2018-10-12 09:08] LABS: BASO % 0.5 % (0.0-2.0); EOS # 0.4 K/uL (0.0-0.7); EOS % 4.8 % (0.0-4.0); HEMOGLOBIN 12.3 g/dL (11.0-16.0); LYMPH # 3.8 K/uL (1.0-4.3); LYMPH % 45.5 % (20.0-40.0); MEAN CELL VOLUME 88.9 fL (81.0-99.0); MEAN CORPUSCULAR HEMOGLOBIN 29.7 pg (27.0-31.0); MEAN CORPUSCULAR HGB CONC 33.4 g/dL (33.0-37.0); MEAN PLATELET VOLUME 9.8 fL (7.2-11.7); MONO # 0.6 K/uL (0.0-0.8); MONO % 7.3 % (0.0-10.0); NEUT # 3.5 K/uL (1.8-7.0); NEUT % 41.9 % (50.0-75.0); NRBC % 0.1 % (0.0-2.0); RBC 4.15 Mil/uL (3.80-5.20); RED CELL DISTRIBUTION WIDTH 14.5 % (11.5-14.5); WHITE BLOOD COUNT 8.3 K/uL (4.8-10.8)
[2018-10-12 09:29] LABS: ALB/GLOB RATIO 1.2 (1.0-2.1); ALBUMIN 3.6 g/dL (3.5-5.0); ALT/SGPT 165 U/L (9-52); AST/SGOT 71 U/L (14-36); BLOOD UREA NITROGEN 11 mg/dL (7-17); CALCIUM 8.6 mg/dl (8.6-10.4); GFR NON-AFRICAN AMERICAN > 60
[2018-10-12] MEDS: Saccharomyces Boulardi 250 mg Cap PO SCH ×2 (09:33→17:01)
[2018-10-12] MEDS: Cefepime IV 1 gm in Dextrose 1 GM/50 ML BAG IVPB SCH (12:22)
--- NOTE | 2018-10-12 14:37 | CP.PCM.PN ---
Subjective - Date & Time of Evaluation Date of Evaluation: 10/12/18 Time of Evaluation: 14:36 - Subjective Subjective: CHIEF COMPLAINTS TODAY : upper respiratory tract congestion less. C. difficile is negative in the stool ROS. HEENT : N. Resp : No hemoptysis Cardio : No anginal CP, PND, orthopnea, palpitation GI : No abd.pain, n/v ,diarrhea or GI bleeding . 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 Musculoskel : No joint swelling , Derm : No rash Psych : Normal affect. Ext : No swelling ,calf pain PE. Pt. is alert awake in no distress. V.S As noted in the chart Head ,ear nose,throat and eyes : Normal. Neck : Supple with normal carotids. Lungs: Clear air entry. Heart : S1 & S2 normal with S4. No murmur. Abd : Soft non tender with normal bowel sounds. Neuro : Moves all ext. with no localized deficit. Ext : No edema with intact pulses.Non tender calves Derm : No rashes or decubitus ulcer. LABS/RADIOLOGY: CT scan of the chest shows some nodular lesion in the left lingula lobe could be secondary to post inflammatory or fibrosis recommend CAT scan in 3 months ASSESSMENT/PLAN : to discuss with ID for further plan Objective - Vital Signs/Intake and Output Vital Signs (last 24 hours): Temp Pulse Resp BP Pulse Ox 98.5 F 86 20 116/76 96 10/12/18 07:58 10/12/18 07:58 10/12/18 07:58 10/12/18 07:58 10/12/18 07:58 Intake and Output: 10/12/18 10/12/18 11:59 23:59 Intake Total 250 530 Balance 250 530 - Medications Medications: Current Medications Acetaminophen (Tylenol 325mg Tab) 650 mg PO Q4 PRN PRN Reason: Temperature Last Admin: 10/09/18 19:01 Dose: 650 mg Albuterol/Ipratropium (Duoneb 3 Mg/0.5 Mg (3 Ml) Ud) 3 ml INH RQ6 [facility] Last Admin: 10/12/18 13:22 Dose: Not Given Benzonatate (Tessalon Perles) 200 mg PO TID [facility] Last Admin: 10/12/18 13:00 Dose: 200 mg Heparin Sodium (Porcine) (Heparin) 5,000 units SC Q12 [facility] Last Admin: 10/12/18 09:33 Dose: 5,000 units Cefepime HCl (Maxipime Iv 1 Gm Premix) 1 gm in 50 mls @ 100 mls/hr IVPB Q12H [facility]; Protocol Last Admin: 10/12/18 12:22 Dose: 100 mls/hr Oseltamivir Phosphate (Tamiflu Cap) 75 mg PO BID [facility]; Protocol Stop: 10/14/18 18:01 Last Admin: 10/12/18 09:33 Dose: 75 mg Saccharomyces Boulardii (Florastor) 250 mg PO BID [facility] Last Admin: 10/12/18 09:33 Dose: 250 mg Zolpidem Tartrate (Ambien) 5 mg PO HS PRN PRN Reason: Insomnia Last Admin: 10/11/18 22:51 Dose: 5 mg - Labs Labs: 10/12/18 08:57 10/12/18 08:57
--- NOTE | 2018-10-12 14:43 | CP.PCM.PN ---
Subjective - Date & Time of Evaluation Date of Evaluation: 10/12/18 Time of Evaluation: 14:43 - Subjective Subjective: CHIEF COMPLAINTS TODAY : AFEBRILE LESS COUGH ANXIOUS TO GO HOME. DENIES ANY DIARRHOEA ROS. HEENT : N. Resp : No hemoptysis +VE COUGH/ Cardio : No anginal CP, PND, orthopnea, palpitation GI : No abd.pain, n/v ,diarrhea or GI bleeding . 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 Musculoskel : No joint swelling , Derm : No rash Psych : Normal affect. Ext : No swelling ,calf pain PE. Pt. is alert awake in no distress. V.S As noted in the chart Head ,ear nose,throat and eyes : Normal. Neck : Supple with normal carotids. Lungs: -VE WHEEZE/OR RHONCHI Heart : S1 & S2 normal with S4. No murmur. Abd : Soft non tender with normal bowel sounds. Neuro : Moves all ext. with no localized deficit. Ext : No edema with intact pulses.Non tender calves Derm : No rashes or decubitus ulcer. LABS/RADIOLOGY: REVIEWED LFTS IMPROVING STOOL C. DEFFICILE X -VE CT scan of the chest shows some nodular lesion in the left lingula lobe could be secondary to post inflammatory or fibrosis recommend CAT scan in 3 months ASSESSMENT INFLUENZA A EXACERBATION OF COPD. CHRONIC FIBROSIS DIARRHOEA RESOLVED /PLAN : CONTINUE TAMIFLU 75 MG BY MOUTH TWICE A DAY X2DAYS MORE DC iv CEFEPIME 1 G EVERY 12 HOURLY 10/09/18. FLORSTAR 250MG PO HS X 7DAYS PULMONARY TOILET. CASE DISCUSSED WITH THE STAFF AND PMD AND SON . MAY CALL THEIR PHYSICIAN IF ANY S/S OF FLUE. PT TO F/U OPD NEXT WEEK. Objective - Vital Signs/Intake and Output Vital Signs (last 24 hours): Temp Pulse Resp BP Pulse Ox 98.5 F 86 20 116/76 96 10/12/18 07:58 10/12/18 07:58 10/12/18 07:58 10/12/18 07:58 10/12/18 07:58 Intake and Output: 10/12/18 10/12/18 06:59 18:59 Intake Total 400 530 Balance 400 530 - Medications Medications: Current Medications Acetaminophen (Tylenol 325mg Tab) 650 mg PO Q4 PRN PRN Reason: Temperature Last Admin: 10/09/18 19:01 Dose: 650 mg Albuterol/Ipratropium (Duoneb 3 Mg/0.5 Mg (3 Ml) Ud) 3 ml INH RQ6 [facility] Last Admin: 10/12/18 13:22 Dose: Not Given Benzonatate (Tessalon Perles) 200 mg PO TID [facility] Last Admin: 10/12/18 13:00 Dose: 200 mg Heparin Sodium (Porcine) (Heparin) 5,000 units SC Q12 [facility] Last Admin: 10/12/18 09:33 Dose: 5,000 units Cefepime HCl (Maxipime Iv 1 Gm Premix) 1 gm in 50 mls @ 100 mls/hr IVPB Q12H [facility]; Protocol Last Admin: 10/12/18 12:22 Dose: 100 mls/hr Oseltamivir Phosphate (Tamiflu Cap) 75 mg PO BID [facility]; Protocol Stop: 10/14/18 18:01 Last Admin: 10/12/18 09:33 Dose: 75 mg Saccharomyces Boulardii (Florastor) 250 mg PO BID [facility] Last Admin: 10/12/18 09:33 Dose: 250 mg Zolpidem Tartrate (Ambien) 5 mg PO HS PRN PRN Reason: Insomnia Last Admin: 10/11/18 22:51 Dose: 5 mg - Labs Labs: 10/12/18 08:57 10/12/18 08:57 Assessment and Plan (1) Pneumonia and influenza Status: Acute (2) Fatty liver disease, nonalcoholic Status: Acute
[2018-10-12 17:13] VITALS: BP 131/84; PULSE 85; TEMP 98.4; O2SAT 95
== END 2018-10-12 19:40 | disposition home or self-care (01) | DRG 89 ==
LOC: C.ER 06:25 → C.9E 11:01 → C.5S 18:04
PROVIDERS: ADMIT Internal Medicine Cardiovascular Disease; ATTEND Internal Medicine Cardiovascular Disease
DX: J10.00 Influenza due to other identified influenza virus with unspecified type of pneumonia (principal); J44.0 Chronic obstructive pulmonary disease with (acute) lower respiratory infection; J84.10 Pulmonary fibrosis, unspecified; J44.1 Chronic obstructive pulmonary disease with (acute) exacerbation; K76.0 Fatty (change of) liver, not elsewhere classified; Z90.49 Acquired absence of other specified parts of digestive tract